=== PATIENT | male | born 1940 | race Caucasian/White ===

== ENCOUNTER → 2016-10-22 | Outpatient (CLI) | payer OTHER | END | disposition home or self-care (01) | LOC: AMB 13:00 | DX: M48.02 Spinal stenosis, cervical region (principal); M48.03 Spinal stenosis, cervicothoracic region; M48.06 Spinal stenosis, lumbar region; M48.07 Spinal stenosis, lumbosacral region; R26.0 Ataxic gait; Z98.1 Arthrodesis status | CPT/HCPCS: 62305; 72126; 72129; 72132 ==